=== PATIENT | female | born 1980 | race Caucasian/White ===

== ENCOUNTER 2017-04-21 03:08 | Outpatient (CLI) ==
[2013-05-06 12:42] VITALS: BP 121/82; TEMP 97.2
[2017-04-21 03:01] VITALS: BMI 23.2
[2017-04-21 03:36] LABS: BILIRUBIN,URINE Negative (NEGATIVE); KETONES,URINE Negative (NEGATIVE); LEUKOCYTE ESTERASE ,URINE 3+ (NEGATIVE); NITRITE,URINE Negative (NEGATIVE); PH,URINE 5.5 (5-9); PROTEIN,URINE 2+ (NEGATIVE); URINE, BLOOD 1+ (NEGATIVE)
[2017-04-21 03:43] LABS: ADD URINE MICROSCOPIC YES
[2017-04-21 03:44] LABS: BACTERIA,URINE 1+ (NOT PRESENT)
== END 2017-04-21 03:09 | disposition home or self-care (01) ==
LOC: LAB 03:08
PROVIDERS: ATTEND Family Medicine
DX: N30.90 Cystitis, unspecified without hematuria (principal)
CPT/HCPCS: 81001; 87086; 87186

== ENCOUNTER 2017-05-13 20:53 | Emergency (ER) ==
[2017-05-13 21:02] VITALS: BP 132/86; TEMP 98.9; BMI 19.7
--- NOTE | 2017-05-13 22:06 | ED.PDOC ---
General ED Provider: Dr. FRANKO NEGRO Chief Complaint: Laceration Stated Complaint: Patient states she punched the screen glass door by mistake. She has sustained laceration to the left hand with bleeding. Time Seen by Physician: 21:00 Mode of Arrival: Walk-In Information Source: Patient Exam Limitations: No limitations Primary Care Provider: JOHANNE PAGE Nursing and Triage Documentation Reviewed and Agree: Yes Skin Complaint Exam - Laceration/Abrasion/Hand Complaint/Exam Location of Injury: Left, Hand, Wrist Mechanism of Injury: Laceration, Sharp trauma Onset/Duration: 1 hour Symptoms Are: Still present Initial Severity: Mild Current Severity: Moderate Aggravating: Movement Alleviating: Compression Associated Signs and Symptoms: Denies: Fever, Chills, Erythema, Numbness, Tingling Related History: Reports: Right hand dominant Hand Picture: 1 - Flap with bleeding 2 - 0.5 cm laceration with bleeding. Differential Diagnoses: Abrasion, Foreign Body Review of Systems - Review Of Systems Constitutional: Reports: No symptoms Eyes: Reports: No symptoms Ears, Nose, Mouth, Throat: Reports: No symptoms Respiratory: Reports: No symptoms Cardiac: Reports: No symptoms GI: Reports: No symptoms : Reports: No symptoms Musculoskeletal: Reports: No symptoms Skin: Reports: Other (laceration and abrasion on the right hand ) Neurological: Reports: No symptoms Endocrine: Reports: No symptoms Hematologic/Lymphatic: Reports: No symptoms All Other Systems: Reviewed and Negative Past Medical History - Past Medical History Previously Healthy: Yes Endocrine: Reports: None Cardiovascular: Reports: None Respiratory: Reports: None Hematological: Reports: None Gastrointestinal: Reports: None Genitourinary: Reports: None Neuro/Psych: Reports: Migraine Musculoskeletal: Reports: None Cancer: Reports: None Last Menstrual Period: IUD - Surgical History General Surgical History: Reports: - Family History Family History: Reports: None - Social History Smoking Status: Current every day smoker, Heavy tobacco smoker Hx Substance Use: No Alcohol Screening: Occasionally - Immunizations Tetanus Shot up to Date: No Physical Exam - Physical Exam Appearance: Thin Pain Distress: Moderate Neck: Supple Respiratory: Airway patent, Breath sounds clear, Breath sounds equal, Respirations nonlabored Cardiovascular: RRR, Pulses normal, No rub, No murmur GI/: Soft, Nontender, No masses, Bowel sounds normal, No Organomegaly Musculoskeletal: Limited ROM Skin: Warm, Dry Neurological: Sensation intact, Alert, Oriented Psychiatric: Anxious Interpretation - Radiology Interpretation Radiology Interpretation By: ED Physician Radiology Results: Negative Exam Interpreted: Other (Hand and wrist x ray ) Procedures - Laceration/Wound Repair Right hand Wound Description: Flap Wound Length (cm): 1 cm Wound Width: 0.3 cm Wound Depth: 0.2 cm Wound Explored: Clean Wound Irrigated: Yes Wound Prep: Hibiclens Wound Debrided: Moderate Wound Repaired With: Dermabond Right wrist Wound Description: Linear Wound Length (cm): 1 Wound Explored: Clean Wound Irrigated: Yes Wound Prep: Saline Wound Repaired With: Steri-strips (5) - Foreign Body Removal Location of Foreign Object: right hand Foreign Object: Glass Depth of Object: superfical Type of Anesthesia: None Prep: Hibiclens Irrigation: Yes Skin Incised: No Instruments Used: Yes: Forceps Foreign Body Identified and Removed: Yes (Sharp glass. ) Critical Care Note - Critical Care Note Total Time (mins): 0 Course - Course Orders, Labs, Meds: Orders Category Date Time Status Acetaminophen [Tylenol] MEDS 05/13/17 22:22 Discontinued 1,000 mg PO ONCE STA Diphth,Pertuss(Acell),Tet Vac [Boostrix] MEDS 05/13/17 22:15 Discontinued 0.5 ml IM .ONCE ONE HAND, RIGHT 3 VIEWS Stat RADS 05/13/17 22:10 Completed WRIST, RIGHT 3 VIEWS Stat RADS 05/13/17 22:10 Completed Medications Discontinued Medications Generic Name Dose Route Start Last Admin Trade Name Freq PRN Reason Stop Dose Admin Acetaminophen 1,000 mg 05/13/17 22:22 05/13/17 22:28 Tylenol PO 05/13/17 22:23 1,000 mg ONCE STA Administration Diphtheria/Pertussis/Tetanus Vacc 0.5 ml 05/13/17 22:15 05/13/17 22:29 Boostrix IM 05/13/17 22:16 0.5 ml .ONCE ONE Administration Vital Signs: Temp Pulse Resp BP Pulse Ox 05/13/17 20:55 98.9 F 93 H 20 132/86 98 Departure - Departure Time of Disposition: 22:12 Disposition: HOME SELF-CARE Discharge Problem: Laceration - injury Instructions: Soft Tissue Foreign Body (ED), Skin Adhesive Care (ED) Condition: Good Pt referred to PMD for follow-up: Yes Additional Instructions: Leave steri-strips to fall off on their own Allergies/Adverse Reactions: Allergies No Known Allergies Allergy (Unverified 05/13/17 21:04) Home Medications: Ambulatory Orders Aspirin/Caffeine [Bc Powder Packet] 1 pkg PO DIRECTED PRN 05/13/17 Disposition Discussed With: Patient, Family
[2017-05-13] MEDS ORDERED: BOOSTRIX IM ONE (22:15)
[2017-05-13] MEDS ORDERED: TYLENOL PO STA (22:22)
--- NOTE | 2017-05-13 22:34 | DI ---
EXAM: Right wrist three views HISTORY: Injury and pain FINDINGS/IMPRESSION: No stefania or articular abnormality. Negative exam.
--- NOTE | 2017-05-13 22:34 | DI ---
Exam: Right hand three-view History: Trauma and pain Findings / impression: No bony or articular abnormality of the right hand. Negative exam.
== END 2017-05-13 22:37 | disposition home or self-care (01) ==
LOC: ED 20:53
DX: S61.411A Laceration without foreign body of right hand, initial encounter (principal); S61.511A Laceration without foreign body of right wrist, initial encounter; S61.421A Laceration with foreign body of right hand, initial encounter; W25.XXXA Contact with sharp glass, initial encounter; F17.210 Nicotine dependence, cigarettes, uncomplicated
CPT/HCPCS: 90471; 99283

== ENCOUNTER 2017-08-14 04:57 | Emergency (ER) ==
[2017-08-14 05:03] VITALS: TEMP 98.6; BMI 19.5
[2017-08-14] MEDS ORDERED: TORADOL IM STA (05:17)
[2017-08-14] MEDS ORDERED: PHENERGAN 25 MG/ML VIAL IM STA (05:17)
[2017-08-14] MEDS ORDERED: DILAUDID 1 MG/ML SYRINGE IM STA (05:17)
[2017-08-14 05:26] LABS: URINE PREGNANCY INTERNAL QC INTERNAL QC VALID
[2017-08-14 05:36] LABS: COCAIN SCREEN,URINE NEGATIVE (NEGATIVE)
--- NOTE | 2017-08-14 05:57 | ED.PDOC ---
General ED Provider: Dr. JOHANNE PAGE-ER Chief Complaint: Headache Stated Complaint: yessy got a migraine zarate--im nauseated Time Seen by Physician: 05:00 Mode of Arrival: Walk-In Information Source: Nurse Exam Limitations: No limitations Primary Care Provider: JOHANNE PAGE Nursing and Triage Documentation Reviewed and Agree: Yes Neurological Complaint Exam - Headache Complaint/Exam Onset: Gradual Duration: 6hrs Symptoms Are: Still present Timing: Constant Worst Headache Ever: No Initial Severity: Mild Current Severity: Moderate Location: Right Character: Reports: Dull, Throbbing, Pressure, Typical headache, Migraine Aggravating: Reports: Bright lights Alleviating: Reports: None Associated Signs and Symptoms: Reports: Nausea. Denies: Dizziness, Seizure, Vomiting, Sinus pressure, Fever, Neck pain, Visual changes Related History: Reports: Similar episode Related Surgical History: Reports: None SAH Risk Factors: Reports: None Meningitis Risk Factors: Reports: None SDH Risk Factors: Reports: None Temporal Arteritis Risk Factors: Reports: Female, Normal Head CT Within Last 12 Months: No Fundoscopic Exam: Present: Normal Findings Papilledema Present: No Temporal Artery Tenderness: Present: None Sinus Tenderness: Present: None TMJ Tenderness: Present: None Glascow Coma Scale (see protocol): 15 Meningeal Signs Positive: No Pain on Passive Flexion-Positive Kernig's: No ROM Limited In: No Limitiations Focal Weakness: Present: None Focal Sensory Loss: Present: None Gait: Normal Nystagmus Present: No Gag Reflex Present: Yes [id number]: Normal Findings Romberg Test Positive: No Babinski Sign: Negative Right, Negative Left Heel to Toe Normal: No Differential Diagnoses: Migraine Review of Systems - Review Of Systems Constitutional: Reports: No symptoms Eyes: Reports: No symptoms Ears, Nose, Mouth, Throat: Reports: No symptoms Respiratory: Reports: No symptoms Cardiac: Reports: No symptoms GI: Reports: Nausea : Reports: No symptoms Musculoskeletal: Reports: No symptoms Skin: Reports: No symptoms Neurological: Reports: Headache Endocrine: Reports: No symptoms Hematologic/Lymphatic: Reports: No symptoms All Other Systems: Reviewed and Negative Past Medical History - Past Medical History Previously Healthy: Yes Endocrine: Reports: None Cardiovascular: Reports: None Respiratory: Reports: None Hematological: Reports: None Gastrointestinal: Reports: None Genitourinary: Reports: None Neuro/Psych: Reports: Migraine Musculoskeletal: Reports: None Cancer: Reports: None Last Menstrual Period: 2 MONTHS - Surgical History General Surgical History: Reports: - Family History Family History: Reports: None - Social History Smoking Status: Current every day smoker Hx Substance Use: No Alcohol Screening: Occasionally Lives: With family - Immunizations Tetanus Shot up to Date: Yes Physical Exam - Physical Exam Appearance: Well-appearing Pain Distress: Moderate Eyes: CRISTINA ENT: Ears normal, Nose normal, Oropharynx normal Neck: Supple Respiratory: Airway patent, Breath sounds clear, Breath sounds equal, Respirations nonlabored Cardiovascular: RRR, Pulses normal, No rub, No murmur GI/: Soft Musculoskeletal: Normal strength Skin: Warm Neurological: Sensation intact, Alert, Oriented Psychiatric: Affect appropriate, Mood appropriate Interpretation - Radiology Interpretation Radiology Interpretation By: Radiologist Radiology Results: Negative Exam Interpreted: CT Scan Re-Evaluation - Re-Evaluation Time of Re-Evaluation: 06:26 Status: Improved (no zarate or nausea--bp 117/71) Vital Signs Stable: Yes Pain Level: 0 Appearance: NAD Lungs: Clear Skin: Warm and Dry Neuro: Alert and Oriented X3 CV: RRR Critical Care Note - Critical Care Note Total Time (mins): 0 Course - Course Orders, Labs, Meds: Lab Review 08/14/17 08/14/17 05:20 05:21 Urine Test Negative Urine Opiates Screen Negative Ur Oxycodone Screen Negative Urine Methadone Screen Negative Ur Propoxyphene Screen Negative Ur Barbiturates Screen Negative U Tricyclic Antidepress Negative Ur Phencyclidine Scrn Negative Ur Amphetamine Screen Positive U Methamphetamines Scrn Negative U Benzodiazepines Scrn Negative Urine Cocaine Screen Negative U Cannabinoids Screen Negative Orders Category Date Time Status URINE DRUG SCREEN (RAPID FOR ED) [DRUG SCREEN, URINE, LAB 08/14/17 05:20 Completed RAPID] Stat URINE Stat LAB 08/14/17 05:21 Completed Hydromorphone HCl [Dilaudid 1 mg/ml Syringe] MEDS 08/14/17 05:17 Discontinued 1 mg IM ONCE STA Ketorolac Tromethamine [Toradol] MEDS 08/14/17 05:17 Discontinued 60 mg IM ONCE STA Promethazine HCl [Phenergan 25 mg/ml Vial] MEDS 08/14/17 05:17 Discontinued 25 mg IM ONCE STA CT HEAD W/O CONTRAST Stat RADS 08/14/17 05:16 Completed Medications Discontinued Medications Generic Name Dose Route Start Last Admin Trade Name Andrei PRN Reason Stop Dose Admin Hydromorphone HCl 1 mg 08/14/17 05:17 08/14/17 05:34 Dilaudid 1 Mg/Ml Syringe IM 08/14/17 05:18 1 mg ONCE STA Administration Ketorolac Tromethamine 60 mg 08/14/17 05:17 08/14/17 05:35 Toradol IM 08/14/17 05:18 60 mg ONCE STA Administration Promethazine HCl 25 mg 08/14/17 05:17 08/14/17 05:35 Phenergan 25 Mg/Ml Vial IM 08/14/17 05:18 25 mg ONCE STA Administration Vital Signs: Temp Pulse Resp BP Pulse Ox 08/14/17 04:58 98.6 F 82 22 161/109 H 98 Departure - Departure Time of Disposition: 06:26 Disposition: HOME SELF-CARE Discharge Problem: Migraine Qualifiers: Migraine type: without aura Status migrainosus presence: without status migrainosus Intractability: not intractable Qualified Code(s): G43.009 - Migraine without aura, not intractable, without status migrainosus Instructions: Migraine Headache (ED) Condition: Good Pt referred to PMD for follow-up: Yes Additional Instructions: f/u prn Allergies/Adverse Reactions: Allergies No Known Allergies Allergy (Unverified 08/14/17 05:03) Home Medications: Ambulatory Orders 1 [No Reported Medications] 08/14/17 Disposition Discussed With: Patient
--- NOTE | 2017-08-14 06:07 | CT ---
EXAM: CT head without contrast. HISTORY: Migraine headache. PROCEDURE: Contiguous axial CT images of the head without contrast with coronal and sagittal reforma ts. FINDINGS: The ventricles and basal cisterns are normal in size and configuration. No evidence of m ass or midline shift. No intracranial hemorrhage or evidence of large vessel infarct. No extra-axia l fluid collection. The paranasal sinuses and mastoid air cells are well-aerated. Impression: Negative CT of the head.
[2017-08-14 06:31] VITALS: BP 117/71
== END 2017-08-14 06:35 | disposition home or self-care (01) ==
LOC: ED 04:57
DX: G43.009 Migraine without aura, not intractable, without status migrainosus (principal); F17.210 Nicotine dependence, cigarettes, uncomplicated
CPT/HCPCS: 80306; 81025; 96372; 99283